=== PATIENT | male | born 1960 | race Caucasian/White ===

== ENCOUNTER 2016-10-20 21:14 | Emergency (ER) | payer OTHER ==
[~2016-10-20] VITALS: Wt 128.0 kg
[~2016-10-20 21:14] MED LIST: CEPH-443 PO; TAMS0.4C2 PO
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
[2016-10-20] MEDS ORDERED: OXYCODONE/ACETAMINOPHEN (5/325) TAB PO ONE (23:30)
[2016-10-21 00:39] LABS: ADD UMIC YES; URINE BILIRUBIN (Dip) NEGATIVE (NEGATIVE); URINE BLOOD (Dip) 3+ (NEGATIVE); URINE COLOR LT. YELLOW (YELLOW); URINE GLUCOSE (Dip) NEGATIVE (NEGATIVE); URINE KETONES (Dip) NEGATIVE (NEGATIVE); URINE LEUKOCYTE ESTERASE (Dip) 2+ (NEGATIVE); URINE NITRITE (Dip) NEGATIVE (NEGATIVE); URINE TOTAL PROTEIN (Dip) 2+ (NEGATIVE); URINE UROBILINOGEN (Dip) 0.2 E.U./dL (0.1-1.0)
[2016-10-21] MEDS ORDERED: CIPR500T4 PO (00:53)
[2016-10-21 01:01] LABS: BACTERIA,URINE MANY; SQUAMOUS EPITHELIAL CELL,UR FEW
== END 2016-10-21 01:44 | disposition left against medical advice (07) ==
LOC: FTE 21:14
DX: R33.9 Retention of urine, unspecified (principal); T83.098A Other mechanical complication of other urinary catheter, initial encounter; I10 Essential (primary) hypertension; E11.9 Type 2 diabetes mellitus without complications; F17.210 Nicotine dependence, cigarettes, uncomplicated; Y82.8 Other medical devices associated with adverse incidents; Z85.46 Personal history of malignant neoplasm of prostate
CPT/HCPCS: 51702; 81001; Z7610; 81003

== ENCOUNTER 2016-11-12 20:03 | Emergency (ER) | payer SELFPAY ==
[~2016-11-12] VITALS: Ht 185.4 cm; Wt 120.0 kg
[~2016-11-12 20:03] MED LIST changes: +CIPR500T4 PO
[2016-11-12 20:22] VITALS: Ht 185.4 cm; Wt 120.0 kg
== END 2016-11-12 22:20 | disposition left against medical advice (07) ==
LOC: FTE 20:03
DX: Z53.21 Procedure and treatment not carried out due to patient leaving prior to being seen by health care provider (principal)

== ENCOUNTER 2016-11-14 12:39 | Emergency (ER) | payer OTHER ==
[~2016-11-14] VITALS: Wt 122.0 kg
[2016-11-14 14:29] LABS: URINE BLOOD (Dip) POC 2+ (NEGATIVE)
[2016-11-14] MEDS ORDERED: CIPROFLOXACIN 500 MG TAB PO ONE (14:30)
[2016-11-14] MEDS ORDERED: CIPR500T4 PO (14:36)
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
== END 2016-11-14 14:42 | disposition home or self-care (01) ==
LOC: FTE 12:39
DX: T83.098A Other mechanical complication of other urinary catheter, initial encounter (principal); I10 Essential (primary) hypertension; E11.9 Type 2 diabetes mellitus without complications; F17.210 Nicotine dependence, cigarettes, uncomplicated; R30.0 Dysuria; C61 Malignant neoplasm of prostate; Y73.8 Miscellaneous gastroenterology and urology devices associated with adverse incidents, not elsewhere classified
CPT/HCPCS: 51702; 81003; 87086; Z7502; Z7610